=== PATIENT | female | born 1950 | race Hispanic/Latino ===

== ENCOUNTER 2018-11-13 05:20 | Inpatient (IN) | payer OTHER ==
[2018-11-12 09:19] LABS: BASOPHILS % 0.4 % (0.0-1.0); EOSINOPHILS # (AUTO) 0.1 (0.0-0.4); EOSINOPHILS % 1.4 % (0.0-6.0); HEMATOCRIT 43.8 % (34.2-44.1); HEMOGLOBIN 15.3 g/dL (12.0-16.0); LYMPHOCYTES # (AUTO) 2.3 (1.0-3.2); MEAN CORPUSCULAR HEMOGLOBIN 31.1 pg (28-32); MEAN CORPUSCULAR HGB CONC 34.9 g/dL (31-35); MONOCYTES # (AUTO) 0.7 (0.2-0.8); MONOCYTES % 7.7 % (4.4-11.3); NEUTROPHILS # (AUTO) 6.2 (2.1-6.9); NEUTROPHILS % 66.2 % (38.7-80.0); PLATELET COUNT 267 x10e3/uL (140-360); RED BLOOD COUNT 4.92 x10e6/uL (3.6-5.1); RED CELL DISTRIBUTION WIDTH 11.9 % (11.7-14.4)
[2018-11-12 09:41] LABS: BILIRUBIN,URINE NEGATIVE (NEGATIVE); CLARITY,URINE CLEAR (CLEAR); COLOR,URINE YELLOW (YELLOW); KETONES,URINE NEGATIVE (NEGATIVE); LEUKOCYTE ESTERASE ,URINE NEGATIVE (NEGATIVE); NITRITE,URINE NEGATIVE (NEGATIVE); PROTEIN,URINE DIPSTICK NEGATIVE (NEGATIVE); URINE UROBILINOGEN 0.2 mg/dL (0.2 - 1)
[2018-11-12 09:58] LABS: HIV 1&2 AB SCREEN NON-REACTIVE (NONREACTIVE)
--- NOTE | 2018-11-12 10:04 | Diagnostic Imaging Report ---
EXAMINATION: CHEST 2 VIEWS INDICATION: Pre-op COMPARISON: None FINDINGS: TUBES and LINES: None. LUNGS: Lungs are well inflated. Mild patchy left basilar opacity, likely atelectasis. There is no evidence of pneumonia or pulmonary edema. PLEURA: No pleural effusion or pneumothorax. HEART AND MEDIASTINUM: The cardiomediastinal silhouette is unremarkable. BONES AND SOFT TISSUES: No acute osseous abnormality. Degenerative changes of the visualized spine. UPPER ABDOMEN: No free air under the diaphragm. IMPRESSION: No acute radiographic abnormality. Signed by: Dr. Víctor Jackson MD on 11/12/2018 10:00 AM
[2018-11-13] VITALS (9 sets, daily range): BP systolic 135–150; BP diastolic 63–70
[~2018-11-13] VITALS: Ht 154.9 cm; Wt 75.3 kg
[~2018-11-13 05:20] MED LIST: MULTIVITAMINS1 EAC7 PO
--- OUTSIDE RECORDS SUMMARY | 2018-11-13 05:22 | XMS REPORT ---
Author Author [facility] Address Unknown Phone Unavailable Care Team Providers Care Green Marketer Name Role Phone Nehemias JACKSON Unavailable Unavailable Problems This patient has no known problems. Allergies, Adverse Reactions, Alerts This patient has no known allergies or adverse reactions. Medications This patient has no known medications. Results Test Description Test Time Test Comments Text Results Atomic Results Result Comments CHEST 2 VIEWS 2018-11-12 09:58:00 [place] [address] Patient Name: ДМИТРИЙ BROWNE MR #: [id number] : 1950 Age/Sex: 68/F Req #: [id number] [facility] Physician: Ordered by: CHEN JACKSON MD Report #: [id number] Location: OR Room/Bed: Procedure: [id number] DX/CHEST 2 VIEWS Exam Date: 11/12/18 Exam Time: 0940 REPORT STATUS: Signed EXAMINATION: CHEST 2 VIEWS INDICATION: Pre-op COMPARISON: None FINDINGS: TUBES and LINES: None. LUNGS: Lungs are well inflated. Mild patchy left basilar opacity, likely atelectasis. There is no evidence of pneumonia or pulmonary edema. PLEURA: No pleural effusion or pneumothorax. HEART AND MEDIASTINUM: The cardiomediastinal silhouette is unremarkable. BONES AND SOFT TISSUES: No acute osseous abnormality. Degenerative changes of the visualized spine. UPPER ABDOMEN: No free air under the diaphragm. IMPRESSION: No acute radiographic abnormality. Signed by: Dr. Ade Jackson MD on 11/12/2018 10:00 AM Dictated By: ADE JACKSON MD 1000 Transcribed By: NINA on 11/12/18 1000 COPY TO: CHEN JACKSON MD
[2018-11-13] MEDS ORDERED: CEFOXITIN SOD 1 GM VIAL ONE (06:17)
[2018-11-13] MEDS ORDERED: HYDROMORPHONE 2MG/ML 2 MG/ML ML ONE (07:34)
[2018-11-13] MEDS ORDERED: BUPIVACAINE LIPOSOME/PF 266 MG/20 ML IJ ONE (09:11)
[2018-11-13] MEDS ORDERED: DEXTROSE 5%/LACTATED RINGERS 1,000 ML IV ONE (10:57)
[2018-11-13] MEDS ORDERED: METOCLOPRAMIDE HCL 10 MG/2ML VIAL IV PRN (11:15)
[2018-11-13] MEDS ORDERED: ONDANSETRON HCL INJ 2MG/ML 2ML 2 MG/ML VIAL IV PRN (11:15)
[2018-11-13] MEDS ORDERED: HYDROMORPHONE 0.2MG/ML-SOD CHL 30ML PCA SYRINGE IV PRN (11:15)
[2018-11-13] MEDS ORDERED: DIPHENHYDRAMINE HCL 25 MG CAP PO PRN (11:15)
[2018-11-13] MEDS ORDERED: KETOROLAC TROMETHAMINE 30 MG/ML VIAL IV PRN (11:15)
[2018-11-13] MEDS ORDERED: NALOXONE HCL INJ 0.4 MG/ML AMP IV PRN (11:15)
[2018-11-13] MEDS ORDERED: ACETAMINOPHEN 1000 MG/100 ML IV PRN (11:15)
--- NOTE | 2018-11-13 11:20 | NUR ---
PT ARRIVED ON UNIT FROM PACU VIA BED WITH TWO ASSIST. VS WNL. PT IS AAO X3. PT STATED PAIN AT 3/10. DRESSING NOTED TO LOWER ABD, NO DRAINAGE OBSERVED AROUND SITE. NC @ 2LPM, NO SKIN BREAKDOWN NOTED AROUND NARES. ACCOMPANIED BY AND SON AT BEDSIDE. IV NOTED TO R HAND, NO REDNESS OR SWELLING TO INSERTION SITE. SVITLANA AND SCD PROPERLY PLACED ON BLE. ABD BINDER ON, SKIN UNDER BINDER INTACT/WARM/AND DRY. CONTINUING PAIN MANAGEMENT.
[2018-11-13] MEDS ORDERED: HYDROMORPHONE 0.2MG/ML-SOD CHL 30ML PCA SYRINGE IV ONE (11:25)
--- NOTE | 2018-11-13 14:53 | Operative Report ---
DATE OF PROCEDURE: November 13, 2018 PREOPERATIVE DIAGNOSIS: A 68-year-old female, 3, para 3, with recurrent postmenopausal bleeding, fibroid uterus and cervical polyp. POSTOPERATIVE DIAGNOSES 1. A 68-year-old female, 3, para 3, with recurrent postmenopausal bleeding, fibroid uterus and cervical polyp. 2. Pelvic and abdominal adhesions. PROCEDURES DONE 1. Examination under anesthesia. 2. Total abdominal hysterectomy and bilateral salpingo-oophorectomy. 3. Abdominal and pelvic adhesiolysis. CONCRETE PLACEMENT EQUIPMENT OPERATOR: Dr. Davis ANESTHESIA: General. I injected Exparel local anesthesia into the vaginal vault and into the abdominal wall at the end of the procedure. FINDINGS AT THE TIME SURGERY: On EUA, the cervix looks normal. The uterus is enlarged, about 10 to 12 weeks' size. No adnexal masses felt. On laparotomy, the uterus is enlarged about 10 to 12 weeks. Both ovaries looked normal. Both tubes looked normal. There are adhesions between the bowel, round ligament and tube on the left side and the tube and the ovary and the bowel on the right side, adhesions. ESTIMATED BLOOD LOSS: Around 200 mL. URINE: Clear. COUNTS: Instrument and swab counts are correct. PROCEDURE IN DETAIL: The patient was brought to the operating room and put in the supine position, and general anesthesia was given without any problems. After adequate anesthesia, the patient was prepped and draped in the routine fashion, and we proceeded with the surgery. The Trinidad catheter was in the bladder draining clear urine. I then made a low transverse Pfannenstiel skin incision of the skin and taken down. The fascia was opened in a transverse fashion. The rectus muscles were longitudinally. I identified the peritoneum, opened and entered the abdominal cavity without any problems. Then the patient was put in the Trendelenburg position. We packed the bowels up and put in the O'Ldjpez-N-Uomauren retractor. We put in the upper blade and lower blade. There were adhesions. We had to separate the adhesions before the upper blade was put in. Then the fundus of the uterus was held with the [place] clamp. We the adhesions on the left side between the bowel and round ligament and the tube and ovary. Then round ligaments on either side were clamped with a LigaSure, cauterized and cut on both sides close to the uterus. Then bladder flap and the peritoneum were opened in the midline and extended on either side up to the stumps of the round ligaments. The bladder was dissected down and pushed down. This was done with sharp dissection. We used the sponge stick to push it down when it was . The bladder went down very well. Now posteriorly, after all the adhesions between the uterus and omentum and bowel, it was clear. I made an opening in the broad ligament close to the uterus and dissected down and isolated the infundibulopelvic ligament and clamped close to the ovary, cut towards the ovary and, cauterized and cut close to the ovary with the LigaSure. This was done on both sides. Then dissected the posterior peritoneum and pushed down the uterus far away. Isolated the uterine vessels and clamped them close to the uterus with the LigaSure, cauterized twice and then cut. The hemostasis was satisfactory. Then dissected in the front and dissected down the bladder and pushed down the bladder. Then the cardinal ligaments on either side were clamped with straight Ruth clamps, cut towards the uterus, and suture ligated with transfixation suture using 1-0 Vicryl. The suture was tied snug and cut short. The cervix was elongated and had to take 2 bites on either side. Then dissected some more in the front. The bladder was very down. Posteriorly, the bladder and bowel were away. The uterosacral ligaments on either side were clamped with curved Ruth clamps, cut towards the uterus, and suture ligated using the 1-0 Vicryl. The suture was tied snug and held long. We were all the way up to the angles. Straight-angle clamps placed on either side of the vagina close to the cervix, cut towards the cervix. The stumps were suture ligated using 1-0 Vicryl with transfixation suture. The suture was held long with the hemostat. Then the anterior vaginal wall and the posterior vaginal wall and removed the uterus along with the tubes and ovaries and sent for pathology. Then the vaginal cuff was held with Raul clamps and placed interrupted stitches using 1-0 Vicryl. All the sutures were tied snug and cut short. Then hemostasis appeared satisfactory. Irrigated the pelvis. All the stumps looked good. The hemostasis was good. Urine is clear in the bladder. Then injected the Exparel local anesthetic about 6 to 7 mL into the vaginal cuff and then removed the O'Rjtemh-E-Dwjtbclx retractor retractor. We removed all the laps. Instrument and swab counts were correct. The peritoneum was approximated with interrupted stitches using 2-0 Vicryl. Then injected the rest of the Exparel into the abdominal wall. Then the fascia was closed with 1-0 Vicryl using 2 sutures, starting at the corners and ending in the midline. The subcutaneous tissue was approximated with 2-0 Vicryl with continuous stitches. The skin was approximated with 4-0 Vicryl using subcuticular stitches. The patient tolerated the procedure well. There were no complications. Estimated blood loss around 200 mL. Urine was clear in the Trinidad bag. Vital signs were stable. Instrument and swab counts were correct. The patient was moved to the recovery room in stable condition. Job#: [id number]
[2018-11-13] MEDS: CEFOXITIN 2GM/ D5W 50ML 50 ML IV SCH ×2 (15:22→20:08)
[2018-11-13] MEDS: DEXTROSE 5%/LACTATED RINGERS 1,000 ML IV SCH ×2 (15:36→22:16)
--- NOTE | 2018-11-13 18:43 | NUR ---
PT RESTING IN ROOM AT THIS TIME, NO S/S OF DISTRESS NOTED. DENIED PAIN, STATED 0/10. LOWER ABD DRESSING INTACT, NO DRAINAGE NOTED.
[2018-11-13] MEDS ORDERED: FENTANYL CITRATE/PF 100MCG/2 ML INJ ONE (18:49)
[2018-11-13] MEDS ORDERED: MIDAZOLAM HCL 2 MG/2 ML VIAL ONE (18:49)
[2018-11-13] MEDS ORDERED: DEXAMETHASONE SOD PHOS INJ 4 MG/ML VIAL ONE (19:09)
[2018-11-13] MEDS ORDERED: SEVOFLURANE INHAL SOLN 250 ML PEN BTL ONE (19:09)
[2018-11-13] MEDS ORDERED: ACETAMINOPHEN 1000 MG/100 ML IV ONE (19:09)
[2018-11-13] MEDS ORDERED: ROCURONIUM BROMIDE 10 MG/ML 5ML VIAL ONE (19:09)
[2018-11-13] MEDS ORDERED: NEOSTIGMINE 5 MG/5ML SYR ONE (19:09)
[2018-11-13] MEDS ORDERED: KETOROLAC TROMETHAMINE 30 MG/ML VIAL ONE (19:09)
[2018-11-13] MEDS ORDERED: PROPOFOL IV EMULSION 10 MG/ML 20 ML VIAL ONE (19:09)
[2018-11-13] MEDS ORDERED: ONDANSETRON HCL INJ 2MG/ML 2ML 2 MG/ML VIAL ONE (19:09)
[2018-11-13] MEDS ORDERED: LIDOCAINE HCL 2% LOCAL INJ 5 ML SDV VIAL INJ ONE (19:09)
[2018-11-13] MEDS ORDERED: GLYCOPYRROLATE INJ 1MG/ 5 ML SYR ONE (19:09)
--- NOTE | 2018-11-13 19:20 | NUR ---
REPORT TAKEN FROM AM RN.WALKING ROUNDS DONE.STABLE CONDITION.
--- NOTE | 2018-11-13 21:00 | NUR ---
ASSESSMENT DONE.NO RESP.DISTRESS.USES ICS.IV FLUID INFUSING.DRESSING DRY AND INTACT.WAGNER CARE GIVEN.ENCOURAGED TO TAKE DEEP BREATH EXERCISE. HEAD AUTOMATIC SAWYER DILAUDID IS IN PLACE. BED ALARM ON.BED LOCKED AND IN LOWEST POSITION.PHONE AND CALL LIGHT WITHIN REACH.INSTRUCTED TO CALL FOR ASSISTANCE NEEDED.
--- NOTE | 2018-11-14 00:20 | NUR ---
NO PASSES GAS.STABLE CONDITION.
[2018-11-14 00:22] VITALS: BP 125/59
[2018-11-14] MEDS: CEFOXITIN 2GM/ D5W 50ML 50 ML IV SCH ×2 (02:00→08:49)
--- NOTE | 2018-11-14 03:00 | NUR ---
Rested well during night .stable condition.
[2018-11-14 04:00] VITALS: BP 115/61
[2018-11-14] MEDS: DEXTROSE 5%/LACTATED RINGERS 1,000 ML IV SCH ×2 (05:57→14:00)
--- NOTE | 2018-11-14 06:00 | NUR ---
WAGNER D/C @ 0600AM TODAY.CATHETER TIP INTACT.TOLERATED WELL.DUE TO VOID BETWEEN 12-2PM.
[2018-11-14 06:12] LABS: BASOPHILS % 0.1 % (0.0-1.0); EOSINOPHILS % 0.1 % (0.0-6.0); HEMATOCRIT 33.3 % (34.2-44.1); HEMOGLOBIN 11.4 g/dL (12.0-16.0); LYMPHOCYTES # (AUTO) 2.9 (1.0-3.2); LYMPHOCYTES % 12.9 % (18.0-39.1); MEAN CORPUSCULAR HEMOGLOBIN 30.7 pg (28-32); MEAN CORPUSCULAR HGB CONC 34.2 g/dL (31-35); MEAN CORPUSCULAR VOLUME 89.8 fL (81-99); MONOCYTES % 9.1 % (4.4-11.3); NEUTROPHILS # (AUTO) 17.3 (2.1-6.9); NEUTROPHILS % 77.1 % (38.7-80.0); PLATELET COUNT 246 x10e3/uL (140-360); RED BLOOD COUNT 3.71 x10e6/uL (3.6-5.1); RED CELL DISTRIBUTION WIDTH 11.9 % (11.7-14.4)
[2018-11-14 06:49] LABS: ALANINE AMINOTRANSFERASE 26 IU/L (0-55); ALBUMIN 3.1 g/dL (3.5-5.0); ALBUMIN/GLOBULIN RATIO 1.5 (0.8-2.0); ALKALINE PHOSPHATASE 66 IU/L (40-150); ANION GAP 11.7 mmol/L (8-16); BLOOD UREA NITROGEN 10 mg/dL (7-26); BUN/CREATININE RATIO 14 (6-25); CALCIUM 8.4 mg/dL (8.4-10.2); CARBON DIOXIDE 24 mmol/L (22-29); CHLORIDE 98 mmol/L (98-107); EST GLOMERULAR FILTRATION RATE > 60 ML/MIN (60-); GLUCOSE 146 mg/dL (74-118); POTASSIUM 3.7 mmol/L (3.5-5.1); SODIUM 130 mmol/L (136-145)
--- NOTE | 2018-11-14 06:50 | NUR ---
REPORT GIVEN TO THE ONCOMING RN.WALKING ROUNDS DONE.STABLE CONDITION.
--- NOTE | 2018-11-14 07:29 | NUR ---
Received patient. Patient awake in bed at this time, no signs of distress. Bed in lowest position, wheels locked, side rails up x2, call light in reach. Will continue to monitor.
[2018-11-14 07:45] LABS: BAND NEUTROPHILS % (MANUAL) 1 %; LYMPHOCYTES % (MANUAL) 12 % (19-48); MONOCYTES % (MANUAL) 9 % (3.4-9.0); NEUTROPHILS % (MANUAL) 78 % (40-74)
[2018-11-14 07:46] LABS: PLATELET ESTIMATE ADEQUATE; PLATELET MORPHOLOGY COMMENT NORMAL; RBC MORPHOLOGY COMMENT NORMAL
[2018-11-14 07:56] VITALS: BP 140/68
--- NOTE | 2018-11-14 09:15 | NUR ---
Patient A/O X3, even respirations on RA. Lower abdominal dressing clean, dry/intact. SCD's and Ten hose bilaterally. JIG BUILDER HELPER pump in place w/ Dilaudid. Last BM yesterday, bowel sounds active, not passing gas. Pain controlled at this time, no signs of distress. Will continue to monitor.
--- NOTE | 2018-11-14 09:22 | NUR ---
Patient has voided since Trinidad removal.
[2018-11-14] MEDS ORDERED: IBUPROFEN 400 MG TAB PO PRN (09:30)
[2018-11-14] MEDS ORDERED: HYDROCODONE/APAP 5MG-325MG TAB PO PRN (09:30)
[2018-11-14 10:36] VITALS: BP 140/68
[2018-11-14 12:03] VITALS: BP 140/69
--- NOTE | 2018-11-14 13:05 | NUR ---
Ambulated patient in the gonzalez at this time, no signs of distress. Steady gait.
--- NOTE | 2018-11-14 14:26 | NUR ---
CASE MANAGEMENT ASSESSMENT Human Resources Project Manager to bedside to discuss plan of care with patient/family. CM/SW role and care transitions discussed. Anticipated discharge plan discussed along with duration of care. CM/SW discussed patients right to make decisions in care. CM/SW work hours given. Patient lives: with Katheryn Cobb Admit/Transfer: from PACU Hospital/ER visits since last admit: last hospitalization Nov 2017; no ED visits since then POA/Emergency contact: Katheryn Cobb [phone] Current/Previous Home Health: none PCP/Follow-up Care: Dr. Oracio Ordonez; Dr Jackson for [facility] - pt will call office tomorrow and schedule a follow up appointment Current/Previous DME: none Medications (referring to index hospitalization or the first time you were in the hospital) a. Were changes made in your medications when you were in the hospital on [date of index hospitalization]? no b. Did you understand the changes? n/a c. Were you able to obtain your new medications right away? n/a d. Were you able to take your medications like the doctor wanted you to? n/a e. Did the hospital give you an accurate, easy to understand list of medications when you left? n/a Scale of 1-10 how comfortable does patient feel with disease management in outpatient settin Other Services: none Employment Status: employed with [employer] Areas of Concerns: none Referral Needs: none Education Needs: post surgery instructions IMM/NOBLE given and signed (if applicable): n/a Goal for discharge: home today CM/SW left business card at the bedside with contact information. Name and number was also written on the patients whiteboard. Patient verbalized understanding of discussion. CM will follow-up with ongoing discharge and transition of care needs.
--- NOTE | 2018-11-14 14:58 | NUR ---
Nutrition Screen Note RD Recommendation for Physician: -Rec advancing to regular diet as medically appropriate Plan of Care: RD following, monitoring for tolerance and adequacy Nutrition reason for involvement: Nutrition Risk Trigger MST Primary Diagnose(s): post menopausal bleeding and fibroid uterus PMH: no H & P in chart Ht: 61in Wt: 166lb BMI: 31.4kg/m2 IBW: 105lb RD Assessment: (11/14) Chart reviewed. Labs and meds reviewed. 68yo F, who was admitted for post menopausal bleeding. S/p total hysterectomy on 11/13. Visited pt in room who denied significant wt loss, denied decrease in appetite CREWMAN MAIN BATTLE TANK. Pt denied chewing/swallowing problems and nausea/vomiting. Pt tolerated full liquid for lunch today without any GI complains. LBM 11/13. Anticipate pt able to meet nutritional need through po intake when diet is advanced. Will cont to monitor. Please consult as needed. Current Diet: full liquid Malnutrition Evaluation (date of eval) The patient does not meet criteria for a specified degree of malnutrition at this time. Will re-evaluate at follow-up as appropriate. Diet Education Needs Assessment: Diet education not indicated. Nutrition Care Level: low Signed: Jeni Nuñez, MS, RD, LD
[2018-11-14] MEDS ORDERED: MOTRIN800 MG PO (14:59)
[2018-11-14] MEDS ORDERED: HYDROCODON-ACE1 EA10 PO (15:00)
[2018-11-14] MEDS ORDERED: COLACE100 M1 PO ×2 (15:02)
[2018-11-14] MEDS ORDERED: DOCUSATE SODIUM 100 MG CAP PO SCH (17:00)
--- NOTE | 2018-11-14 17:45 | NUR ---
Removed patients IV, catheter tip intact and pressure dressing applied.
--- NOTE | 2018-11-14 17:51 | NUR ---
Discharged patient from facility. Patient gathered all personal belongings, discharge instructions, follow up information, and prescriptions. Patient left unit in wheelchair and went home via private auto. No signs of distress when leaving facility.
== END 2018-11-14 17:51 | disposition home or self-care (01) | DRG 743 ==
LOC: OR 05:20 → PACU V 10:05 → OBSVTOIN 10:05 → MED/SURG 11:49 → OBSVTOIN 11-14 13:41 → INTOOBSV 11-14 13:41
PROVIDERS: ADMIT Specialist; ATTEND Specialist
PROC: 0UT20ZZ Resection of Bilateral Ovaries, Open Approach (ICD-10-PCS; 2018-11-13)
PROC: 0UT70ZZ Resection of Bilateral Fallopian Tubes, Open Approach (ICD-10-PCS; 2018-11-13)
PROC: 0UT90ZZ Resection of Uterus, Open Approach (ICD-10-PCS; principal; 2018-11-13 07:30)
DX: D25.1 Intramural leiomyoma of uterus (principal); D25.0 Submucous leiomyoma of uterus; D25.2 Subserosal leiomyoma of uterus; N84.0 Polyp of corpus uteri; N95.0 Postmenopausal bleeding
CPT/HCPCS: 36415; 71046; 80053; 81003; 84702; 85025; 86850; 86900; 87390; 88307; 93005; G0433; G0435; J0694; J1100; J1885; J2001; J2250; J2405